=== PATIENT | male | born 1970 | race African-American/Black ===

== ENCOUNTER 2023-05-22 08:41 | Emergency (ER) | payer SELFPAY ==
[2023-05-22 08:51] VITALS: BP 111/78; PULSE 94; RESP 17; TEMP 99; BMI 19.3
== END 2023-05-22 10:20 | disposition home or self-care (01) ==
LOC: JER 08:41
DX: R05.9 Cough, unspecified (principal); Z20.822 Contact with and (suspected) exposure to COVID-19
CPT/HCPCS: 0241U-QW; 71046-TC-FY; 99284-25